=== PATIENT | male | born 1955 | race Caucasian/White ===

== ENCOUNTER 2017-08-03 15:00 | Inpatient (IN) | payer MEDICARE, OTHER ==
[2017-08-03] MEDS: SOD CHLORIDE 0.9% 1,000 ML IV ×2 (15:37→19:20)
[2017-08-03] MEDS: ONDANSETRON 4 MG INJ IV ×2 (15:37→21:41)
[2017-08-03] MEDS: morphine 4 MG/ML VIAL IV (15:37)
[2017-08-03 15:46] LABS: WHITE BLOOD COUNT 20.2 10^3/ul (4.8-10.8)
[2017-08-03 15:46] LABS: ABNORMAL IP MESSAGE 1; HEMATOCRIT 39.3 % (42.0-52.0); HEMOGLOBIN 13.2 g/dl (14.0-18.0); MEAN CORPUSCULAR HEMOGLOBIN 27.4 pg (29.0-33.0); MEAN CORPUSCULAR HGB CONC 33.6 g/dl (32.0-37.0); MEAN CORPUSCULAR VOLUME 81.7 fl (82.0-101.0); MEAN PLATELET VOLUME 8.7 fl (7.4-10.4); PLATELET COUNT 291 10^3/UL (140-415); POSITIVE DIFF @See below; RED BLOOD COUNT 4.81 10^6/ul (4.70-6.10); RED CELL DISTRIBUTION WIDTH 12.8 % (11.5-14.5)
[2017-08-03 15:55] LABS: ADD MAN DIFF? YES
[2017-08-03 16:06] LABS: BAND NEUTROPHILS #M 0.8 10^3/ul (0.0-0.6); BAND NEUTROPHILS % (M) 4 % (0-4); BURR CELLS 2+; LYMPHOCYTES # 0.2 10^3/ul (0.8-2.9); LYMPHOCYTES #M 0.2 10^3/ul (0.8-2.9); LYMPHOCYTES % (M) 1 % (15-51); MONOCYTE # 1.4 10^3/ul (0.3-0.9); MONOCYTE #M 1.4 10^3/ul (0.3-0.9); MONOCYTES % (M) 7 % (0-11); SEG NEUT #M 17.9 10^3/ul (1.7-7.5); SEGMENTED NEUTROPHILS (M) % 88 % (39-77)
[2017-08-03 16:08] LABS: LACTIC ACID 1.6 mmol/L (0.5-2.0)
[2017-08-03 16:09] LABS: ANION GAP 14 (8-16); BLOOD UREA NITROGEN 11 mg/dl (7-20); CALCIUM 8.9 mg/dl (8.4-10.2); CARBON DIOXIDE 25 mmol/L (21-31); CHLORIDE 98 mmol/L (97-110); CREATININE 0.49 mg/dl (0.61-1.24); GLUCOSE 124 mg/dl (70-220); POTASSIUM 3.4 mmol/L (3.5-5.1); SODIUM 134 mmol/L (135-144)
[2017-08-03 16:20] LABS: TROPONIN-I < 0.012 ng/ml (0.000-0.120)
[2017-08-03] MEDS: AZITHROMYCIN 500MG/NS (PMX) 250 ML IVPB (17:00)
[2017-08-03] MEDS ORDERED: SOD CHLORIDE 0.9% 100 ML (17:15)
[2017-08-03] MEDS: IOHEXOL 100 ML (17:15)
[2017-08-03] MEDS: CEFTRIAXONE 1 GM/50 ML (PMX) 50 ML IVPB (17:17)
[2017-08-03] MEDS ORDERED: ACETAMINOPHEN 325 MG TAB PO (18:30)
[2017-08-03] MEDS: HYDROmorphONE 1 MG/5 ML IV SYRINGE IV ×2 (18:42→21:41)
[2017-08-03] MEDS ORDERED: VANCOMYCIN IV PER PHARMACY XX (19:00)
[2017-08-03] MEDS: LACTATED RINGER'S 1,000 ML IV (19:20)
[2017-08-03] MEDS: VANCOMYCIN 1.5 GM in SOD CHLORIDE 0.9% 250 ML IVPB ×2 (19:23→22:16)
[2017-08-03] MEDS ORDERED: NACL 0.9% 3 ML SYG IV (19:30)
[2017-08-03 21:24] LABS: CREATINE KINASE 36 IU/L (23-200)
[2017-08-03 21:24] LABS: LACTIC ACID 1.6 mmol/L (0.5-2.0)
[2017-08-03 21:37] LABS: CK INDEX 1.6; CK-MB 0.56 ng/ml (0.0-2.4); TROPONIN-I < 0.012 ng/ml (0.000-0.120)
[2017-08-03] MEDS: morphine (ER) 15 MG TAB PO (22:15)
[2017-08-04 00:28] LABS: LACTIC ACID 1.3 mmol/L (0.5-2.0)
[2017-08-04 04:21] LABS: CREATINE KINASE 31 IU/L (23-200)
[2017-08-04 04:34] LABS: CK INDEX 1.4
[2017-08-04 04:36] LABS: CK-MB 0.44 ng/ml (0.0-2.4); TROPONIN-I < 0.012 ng/ml (0.000-0.120)
[2017-08-04] MEDS: morphine 2 MG INJ IV (06:31)
[2017-08-04] MEDS: morphine (ER) 15 MG TAB PO ×2 (09:08→20:54)
[2017-08-04] MEDS: ENOXAPARIN 30 MG/0.3 ML SYG SC (09:09)
[2017-08-04] MEDS: VANCOMYCIN 1.25 GM in SOD CHLORIDE 0.9% 250 ML IVPB ×2 (10:40→22:53)
[2017-08-04] MEDS: morphine LIQ (10 MG/5 ML) CUP PO (14:59)
[2017-08-04] MEDS: CEFTRIAXONE 1 GM/50 ML (PMX) 50 ML IVPB (17:17)
[2017-08-05] MEDS: morphine LIQ (10 MG/5 ML) CUP PO ×5 (00:46→22:59)
[2017-08-05] MEDS: morphine (ER) 15 MG TAB PO ×2 (08:34→20:07)
[2017-08-05] MEDS: ENOXAPARIN 30 MG/0.3 ML SYG SC (08:35)
[2017-08-05 10:55] LABS: VANCOMYCIN,TROUGH 7.2 ug/ml (10.0-20.0)
[2017-08-05] MEDS: VANCOMYCIN 1.25 GM in SOD CHLORIDE 0.9% 250 ML IVPB (11:11)
[2017-08-05] MEDS: CEFTRIAXONE 1 GM/50 ML (PMX) 50 ML IVPB (16:01)
[2017-08-06] MEDS: morphine LIQ (10 MG/5 ML) CUP PO ×2 (04:16→16:52)
[2017-08-06 06:30] LABS: BLOOD UREA NITROGEN 8 mg/dl (7-20)
[2017-08-06 06:30] LABS: CREATININE 0.47 mg/dl (0.61-1.24)
[2017-08-06] MEDS: morphine (ER) 15 MG TAB PO ×2 (08:23→20:34)
[2017-08-06] MEDS: ENOXAPARIN 30 MG/0.3 ML SYG SC (08:25)
[2017-08-06] MEDS: CEFTRIAXONE 1 GM/50 ML (PMX) 50 ML IVPB (16:52)
[2017-08-06] MEDS: ZOLPIDEM 5 MG TAB PO (20:34)
[2017-08-07] MEDS: morphine LIQ (10 MG/5 ML) CUP PO ×4 (02:30→22:03)
[2017-08-07] MEDS: morphine (ER) 15 MG TAB PO ×2 (08:11→20:52)
[2017-08-07] MEDS: ENOXAPARIN 30 MG/0.3 ML SYG SC (08:12)
[2017-08-07] MEDS: CEFTRIAXONE 1 GM/50 ML (PMX) 50 ML IVPB (16:00)
[2017-08-07] MEDS: ZOLPIDEM 5 MG TAB PO (22:03)
[2017-08-08] MEDS: morphine LIQ (10 MG/5 ML) CUP PO ×4 (05:24→19:55)
[2017-08-08] MEDS: morphine (ER) 15 MG TAB PO ×2 (08:57→22:34)
[2017-08-08] MEDS: ENOXAPARIN 30 MG/0.3 ML SYG SC (08:59)
[2017-08-08] MEDS: CEFTRIAXONE 1 GM/50 ML (PMX) 50 ML IVPB (16:53)
[2017-08-09] MEDS: morphine LIQ (10 MG/5 ML) CUP PO ×2 (06:29→11:49)
[2017-08-09] MEDS: morphine (ER) 15 MG TAB PO (08:51)
[2017-08-09] MEDS: ENOXAPARIN 30 MG/0.3 ML SYG SC (08:53)
[2017-08-09] MEDS: HEPARIN (100 UNITS/ML) 5 ML SYG CATHETER (11:39)
== END 2017-08-09 12:40 | disposition home or self-care (01) | DRG 189 ==
LOC: E/R 15:00 → MS2 18:24
DX: J96.01 Acute respiratory failure with hypoxia (principal); C18.9 Malignant neoplasm of colon, unspecified; C78.7 Secondary malignant neoplasm of liver and intrahepatic bile duct; C78.00 Secondary malignant neoplasm of unspecified lung; Z87.891 Personal history of nicotine dependence; Z66 Do not resuscitate
CPT/HCPCS: 71045; 71275; 80048; 80202; 82550; 82553; 82565; 83605; 84484; 84520; 85025; 87040; 93005; 96374; 96375; 96376; 97162; 99291-25